=== PATIENT | female | born 1945 | race Two or more races ===

== ENCOUNTER 2022-06-03 13:06 | Emergency (ER) | payer OTHER ==
[~2022-06-03] VITALS: Ht 134.6 cm; Wt 44.5 kg
[2022-06-03] MEDS ORDERED: HYDROcodone-ACET 5/325MG TAB PO ONE (13:45)
[2022-06-03] MEDS ORDERED: TRAM50TA2 PO (15:16)
[2022-06-03] MEDS ORDERED: HYDR-4902 PO (15:18)
[2022-06-03 16:01] VITALS: BP 137/92
== END 2022-06-03 15:23 | disposition home or self-care (01) ==
LOC: ER 13:06
DX: S09.90XA Unspecified injury of head, initial encounter (principal); M25.512 Pain in left shoulder; M25.561 Pain in right knee; R53.1 Weakness; R42 Dizziness and giddiness; I10 Essential (primary) hypertension; E03.9 Hypothyroidism, unspecified; Z90.49 Acquired absence of other specified parts of digestive tract; Z90.89 Acquired absence of other organs; W18.39XA Other fall on same level, initial encounter; Y93.89 Activity, other specified; Y92.89 Other specified places as the place of occurrence of the external cause; Y99.8 Other external cause status
CPT/HCPCS: 70450; 72125; 73030; 73562; 93005